=== PATIENT | male | born 1965 | race Caucasian/White ===

== ENCOUNTER 2023-05-16 09:47 | Emergency (ER) | payer SELFPAY ==
[2023-05-16 09:48] VITALS: BP 151/85; PULSE 51; RESP 18; TEMP 36.4; O2SAT 100; BMI 24.4
[2023-05-16] MEDS: Ketorolac 15 MG/ML Vial IV (10:12)
[2023-05-16] MEDS: Ondansetron 4 MG/2 ML Vial IV (10:12)
[2023-05-16] MEDS: Morphine 4 MG/ML Syringe IV (10:12)
--- NOTE | 2023-05-16 10:58 | EDS_ITS ---
HPI History of Present Illness Chief Complaint: Back Detail of Chief Complaint: Low back pain since May 13 Informant: patient Onset/Context/Timing Onset: Days Context: Sudden Onset Chronic pain exacerbated by: Not applicable Injury: lifting Timing: Continuous and Waxes and wanes Quality: Dull and Aching Location: Lumbar Current Severity: Moderate Maximum Severity: Severe Worsened by: improves with Movement, Bending and Lifting Relieved by: Nothing Associated Symptoms Associated Symptoms: - (No saddle paresthesia or anesthesia. No foot drop. No buckling of knees going up or down step. No history of direct trauma.); Negative for Numbness, Tingling, Radiation to Right Leg, Radiation to Left Leg, Fever, Abdominal Pain, Dysuria, Unable to Ambulate, Unable to Transfer, Urinary Retention, Urinary Incontinence, Constipation or Fecal Incontinence Narrative Narrative: Patient is a 57-year-old male who works as a local company intermodal truck driver. He has had pain for the past several days. He denies bowel bladder dysfunction. Denies saddle paresthesia or anesthesia. He denies foot drop. He denies buckling of his knee going up or down steps. He denies fever or chills. He denies recent dental procedure or any type of procedure. He denies fever, chills or night sweats. He denies weight gain or weight loss. He denies dysuria, frequency, urgency or hematuria. Prior similar symptoms: No Recent Illness/Hospitalization: No PFSH PFSH Home Medications naproxen 500 mg tablet 500 mg PO BID #14 tabs 05/16/23 [Rx Last Taken Unknown] Allergy/AdvReac Type Severity Reaction Status Date / Time No Known Allergies Allergy Unverified 04/04/18 09:51 Social History (Updated 05/16/23 @ 11:[address] Marcus Lai MD) household members: none Smoking Status: Current every day smoker tobacco type: cigarettes alcohol intake: never ROS ROS ED Constitutional Constitutional ED: Denies chills, fever(s), subjective or sweats Eyes Eyes: Denies blurry vision, change in vision or diplopia ENT ENT ED: Denies ear pain, rhinorrhea or sore throat Cardiovascular Cardiovascular: Denies chest pain or palpitations Respiratory/Chest Respiratory/Chest: Denies dyspnea or dyspnea on exertion Gastrointestinal Gastrointestinal: Denies abdominal pain, constipation, diarrhea, nausea or vomiting Genitourinary Genitourinary ED: Denies dysuria, hematuria or urinary frequency Musculoskeletal Musculoskeletal: Reports back pain; Denies arthralgias, myalgias or neck pain Integumentary Denies rash Neurologic Neurologic: Denies headache(s), paresthesias or weakness Hematologic/Lymphatic Hematologic/Lymphatic: Denies easy bleeding or easy bruising EXAM Physical Exam Const Vital Signs: 05/16/23 09:48 Temperature 97.5 F L Temperature Source Temporal Pulse Rate 51 L Respiratory Rate 18 Blood Pressure 151/85 H Blood Pressure Mean 107 Pulse Ox 100 Oxygen Delivery Method Room Air Positive well nourished and well developed Constitutional Narrative: Patient appears uncomfortable. Patient is limited range of motion. General Appearance ED: well developed; Negative for NAD or pallor HEENT HEENT Narrative: Head is atraumatic and normocephalic. Ears are normal. Nares patent. Eyes PERRL and EOMs intact bilaterally General Eye ED: Negative for pale conjunctiva or scleral icterus Neck no lymphadenopathy, supple and no JVD Resp normal respiratory effort and clear to auscultation bilaterally Cardio regular rhythm, S1 normal heart sound, S2 normal heart sound and no murmurs Rate: bradycardia GI normal to inspection, nondistended, normoactive bowel sounds, soft to palpation, non-distended and no masses GI Narrative: No palpable or pulsatile's. Back/Spine Negative for no thoracic nor lumbar tenderness Back/Spine Narrative: Patella and ankle reflex are 2+ and symmetric. EHL is intact bilaterally. Sensation L3-S1 dermatome is normal. DP and PT pulse are palpable. 5/5 strength with plantar and dorsiflexion. Cervical Spine: Negative for cervical spine tenderness Thoracic Spine / Upper Back: Negative for paraspinal muscle tenderness Lumbar Spine / Lower Back: ROM limited and straight leg raise negative bilaterally Neuro Deep Tendon Reflexes: Rt Patellar (L4): 2+, Lt Patellar (L4): 2+, Rt Ankle (S1): 2+ and Lt Ankle (S1): 2+ Deep Tendon Reflexes Back: Rt Patellar (L4): 2+, Lt Patellar (L4): 2+, Rt Ankle (S1): 2+ and Lt Ankle (S1): 2+ Plantar Reflex: Downgoing: bilateral Psych mental status grossly normal Skin no rashes or lesions noted and no wounds General Skin Exam: Negative for jaundice or pallor MDM MDM MDM Narrative Medical decision making narrative: History and physical exam is consistent with muscular low back pain. There is no concern for herniated disc, epidural abscess or spontaneous epidural hematoma. Patient was informed that I would gladly treat his pain but he needed a ride home. He states he would call his relative. When patient was reassessed at 1058 again it was emphasized that he is not permitted to drive home and needs a ride. He understood. His pain did not improve. He was offered more pain medicine which he declined. Since there is no history of trauma and he has no fever or chills or history of malignancy imaging is not indicated. Furthermore, blood work is not indicated. History & Record Review Discussion w/independent historian: Patient Treatment and Re-Evaluation Narrative: Patient reports no improvement after IV Toradol, morphine. Discharge Plan Triage Chief Complaint: Back ED Provider: Marcus Lai Dx/Rx/DC Orders Clinical Impression: Bradycardia, Acute bilateral low back pain Instructions: ED Back Pain (Acute or Chronic) Prescriptions: New naproxen 500 mg tablet 500 mg PO BID Qty: 14 0RF Primary Care Provider: Care Physician,No Primary Referrals: Marita Greenwood MD [Med Staff - [employer]] - 3-5 Days if not improving Care Physician,No Primary [Primary Care Provider] - Activity Restrictions/Additional Instructions: 1. Since you do not have a primary care physician you were referred to Dr. Zeng. 2. Apply ice 6-10 times a day 3. Avoid activity that causes you pain 4. If you are unable to urinate, have loss of bowel control, or dragging one of your legs or have numbness in your buttocks area return to the emergency department immediately Disposition Disposition: Home, Self Care
[2023-05-16 11:14] VITALS: BP 140/68; PULSE 78; RESP 16; O2SAT 100
--- NOTE | 2023-05-16 11:16 | ED.RN ---
PT TO WAITING ROOM WITH SECURITY TO WAIT FOR HIS RIDE
== END 2023-05-16 11:16 | disposition home or self-care (01) ==
PROVIDERS: Emergency Provider Emergency Medicine; Visit Provider Emergency Medicine
DX: R00.1 Bradycardia, unspecified (principal); M54.50 Low back pain, unspecified; F17.210 Nicotine dependence, cigarettes, uncomplicated
CPT/HCPCS: 96374; 96375; 99283; A4216; J2405